=== PATIENT | female | born 2000 | race Caucasian/White ===

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

== ENCOUNTER → 2019-05-28 | Outpatient (CLI) | payer OTHER ==
--- NOTE | 2019-05-28 15:28 | Diagnostic Imaging Report ---
INDICATION: Bronchitis and right-sided rib pain. Time of exam 3:05 p.m. TECHNIQUE: AP view of the chest as well as multiple views of the bilateral ribs were obtained. FINDINGS: Heart size is normal. The lungs are clear. The pulmonary vascularity is normal. No infiltrate, effusion or pneumothorax is seen. No displaced rib fracture is seen. No parenchymal contusion is seen. IMPRESSION: Unremarkable chest and bilateral ribs. Dictated by: Dictated on workstation # [id number]
== END ==
LOC: RAD 14:47
PROVIDERS: ATTEND Nurse Practitioner Family
DX: J40 Bronchitis, not specified as acute or chronic (principal); R07.81 Pleurodynia
CPT/HCPCS: 71110

== ENCOUNTER → 2020-03-18 | Outpatient (CLI) | payer OTHER ==
--- NOTE | 2020-03-18 14:27 | Diagnostic Imaging Report ---
PROCEDURE: US Non-ob pelvis comp/trans. INDICATION: Abnormal uterine bleeding. TECHNIQUE: Multiple real time wong scale sonographic images were obtained of the pelvis transabdominally and endovaginally. CORRELATION STUDY: 07/05/2017 FINDINGS: UTERUS: 6.9 x 3.7 x 4.7 cm. Suggested potential sub-septate configuration of the uterus. ENDOMETRIUM: 2 mm. The endometrium appearing unremarkable. RIGHT OVARY: 3.5 x 2.4 x 2.4 cm The right ovary has an unremarkable appearance. No concerning mass. Blood flow is present. LEFT OVARY: 2.9 x 2.2 x 1.8 cm The left ovary has an unremarkable appearance. No concerning mass. Blood flow is present. No significant free pelvic fluid. IMPRESSION: 1. Unremarkable appearing pelvic ultrasound examination. Dictated by: Dictated on workstation # [id number]
== END ==
LOC: RAD 12:11
PROVIDERS: ATTEND Obstetrics & Gynecology
DX: N93.8 Other specified abnormal uterine and vaginal bleeding (principal)
CPT/HCPCS: 76830; 76856

== ENCOUNTER 2021-07-20 05:39 | Outpatient (CLI) | payer OTHER ==
[~2021-07-20] VITALS: Ht 170.2 cm; Wt 81.8 kg
== END 2021-07-20 16:53 | disposition home or self-care (01) ==
LOC: PREOP 05:39
PROVIDERS: ATTEND Obstetrics & Gynecology
DX: Z01.818 Encounter for other preprocedural examination (principal)

== ENCOUNTER 2021-07-27 07:27 | Day surgery (SDC) | payer OTHER ==
[2021-07-27] VITALS (10 sets, daily range): BP systolic 72–145; BP diastolic 50–88
[~2021-07-27] VITALS: Ht 170 cm; Wt 81.8 kg
[2021-07-27] MEDS ORDERED: BUPIVACAINE 0.25% 30 ML (SENSORCAINE) VIAL ONE (07:49)
[2021-07-27 08:04] LABS: BASOPHILS # (AUTO) 0.1 10^3/uL (0.0-0.1); BASOPHILS % (AUTO) 1 % (0-10); EOSINOPHILS # (AUTO) 0.7 10^3/uL (0.0-0.3); EOSINOPHILS % (AUTO) 12 % (0-10); HEMATOCRIT 41 % (35-52); HEMOGLOBIN 14.1 g/dL (11.5-16.0); LYMPHOCYTES # (AUTO) 2.4 10^3/uL (1.0-4.0); LYMPHOCYTES % (AUTO) 38 % (12-44); MEAN CORPUSCULAR HEMOGLOBIN 30 pg (25-34); MEAN CORPUSCULAR HGB CONC 35 g/dL (32-36); MEAN CORPUSCULAR VOLUME 88 fL (80-99); MEAN PLATELET VOLUME 11.3 fL (9.0-12.2); MONOCYTES # (AUTO) 0.4 10^3/uL (0.0-1.0); MONOCYTES % (AUTO) 6 % (0-12); NEUTROPHILS # (AUTO) 2.6 10^3/uL (1.8-7.8); NEUTROPHILS % (AUTO) 42 % (42-75); PLATELET COUNT 229 10^3/uL (130-400); WHITE BLOOD COUNT 6.2 10^3/uL (4.3-11.0)
[2021-07-27] MEDS: LACTATED RINGERS 1,000 ML IV PRN ×2 (08:31→09:20)
[2021-07-27] MEDS ORDERED: ROCURONIUM 10 MG/ML 5 ML SYRINGE IV ONE (08:44)
[2021-07-27] MEDS ORDERED: ONDANSETRON 4 MG/2 ML (SDV) Z0FRAN ONE (08:44)
[2021-07-27] MEDS ORDERED: MIDAZOLAM 2 MG/2 ML (VERSED) VIAL ONE (08:44)
[2021-07-27] MEDS ORDERED: LIDOCAINE PF 2% 5 ML (XYLOCAINE) VIAL ONE (08:44)
[2021-07-27] MEDS ORDERED: fentaNYL INJ 100 MCG/2 ML AMP ONE (08:44)
[2021-07-27] MEDS ORDERED: SEVOFLURANE (ULTANE) 15 ML INHAL SOLN ONE (08:44)
[2021-07-27] MEDS ORDERED: proPOfol 200 MG/20 ML (DIPRIVAN) VIAL IV ONE (08:44)
--- NOTE | 2021-07-27 08:50 | Progress Note-Pre Operative ---
Pre-Operative Progress Note H&P Reviewed The H&P was reviewed, patient examined and no changes noted. Date Seen by Provider: Jul 27, 2021 Time Seen by Provider: 08:50 Date H&P Reviewed: Jul 27, 2021 Time H&P Reviewed: 08:50 Pre-Operative Diagnosis: 8 cm ovarian cyst ZARA CABRERA DO Jul 27, 2021 08:50
--- NOTE | 2021-07-27 08:52 | Discharge Inst-Women's Service ---
Discharge Inst-Women's Serv Depart Medication/Instructions New, Converted or Re-Newed RX: Transmitted to Pharmacy Problems Reviewed?: Yes Consults/Follow Up Additional Follow Up: Yes Orders/Referrals in 7-10 days Activity Activity: Activity as Tolerated Driving Instructions: No Driving for 1 Week NO SMOKING: NO SMOKING Nothing Inside Vagina: No Douching, No [place], No Tampons Diet Discharge Diet: No Restrictions Symptoms to Report to : Bleeding Excessive, Pain Increased, Fever Over 101 Degrees F, Vaginal Bleeding Increase, Questions/Concerns For Any Problems or Questions: Contact Your Physician Skin/Wound Care Infection Signs and Symptoms: Increased Redness, Foul Odor of Wound, Increased Drainage, Skin Itchy or Has a Rash, Increased Swelling, Temperature Above 101 F Operative Area Clean and Dry: Keep Incision Clean/Dry Stitches/[place]/Dermabond: Dermabond, Care of Stitches Bathing Instructions: ZARA Carbajal DO Jul 27, 2021 08:52
[2021-07-27] MEDS ORDERED: ACHD5005 PO (08:53)
[2021-07-27] MEDS ORDERED: IBUP-1773 PO (08:53)
[2021-07-27] MEDS ORDERED: HYDROcodone/APAP 5 MG/325 MG (LORTAB) TAB PO PRN (09:00)
[2021-07-27] MEDS ORDERED: KETOROLAC 30 MG/ML VIAL IVP ONE (09:00)
[2021-07-27] MEDS ORDERED: ONDANSETRON 4 MG/2 ML (SDV) Z0FRAN IVP PRN ×2 (09:00→10:15)
[2021-07-27] MEDS ORDERED: D5 LR IV SOLUTION 1,000 ML IV SCH (09:00)
--- NOTE | 2021-07-27 10:06 | Anesthesia-General Post-Op ---
General Patient Condition Mental Status/LOC: Same as Preop Cardiovascular: Satisfactory Nausea/Vomiting: Absent Respiratory: Satisfactory Pain: Controlled Complications: Absent Post Op Complications Complications None Follow Up Care/Instructions Patient Instructions None needed. Anesthesia/Patient Condition Patient Condition Patient is doing well, no complaints, stable vital signs, no apparent adverse anesthesia problems. No complications reported per nursing. BRAD LEONARD CRNA Jul 27, 2021 10:06
[2021-07-27] MEDS ORDERED: HYDROmorphone 2 MG/ML VIAL (DILAUDID) IV ONE (10:15)
[2021-07-27] MEDS ORDERED: MEPERIDINE (DEMEROL) INJ 50 MG/ML IVP ONE (10:15)
[2021-07-27] MEDS ORDERED: PROMETHAZINE INJ 25 MG/ML (PHENERGAN) AMP IVP ONE (10:15)
[2021-07-27] MEDS ORDERED: morphine INJ 10 MG/ML 1ML (SYR OR VIAL) IVP ONE (10:15)
[2021-07-27] MEDS ORDERED: MEPERIDINE (DEMEROL) INJ 50 MG/ML ONE (10:17)
[2021-07-27] MEDS ORDERED: KETOROLAC 30 MG/ML VIAL ONE (10:28)
[2021-07-27] MEDS ORDERED: HYDROcodone/APAP 5 MG/325 MG (LORTAB) TAB ONE (11:04)
[2021-07-27] MEDS ORDERED: HYDROcodone/APAP 5 MG/325 MG (LORTAB) TAB PO ONE (11:15)
--- NOTE | 2021-07-27 17:44 | OPERATIVE REPORT ---
DATE OF SERVICE: PREOPERATIVE DIAGNOSIS: A 21-year-old female with 8 cm ovarian mass. POSTOPERATIVE DIAGNOSIS: A 21-year-old female with 8 cm ovarian mass. PROCEDURE: Laparoscopic right ovarian cystectomy and lysis of adhesions. SURGEON: Florentin Garcia DO FLIGHT INSPECTOR: Joy Hensley DNP, was necessary for manipulation and retraction throughout the procedure. ANESTHESIA: General endotracheal. ESTIMATED BLOOD LOSS: Minimal. URINE OUTPUT: 50 mL clear at the end of the procedure. FLUIDS: 1200 mL lactated Ringer's solution. FINDINGS: An enlarged right ovary consistent with ultrasound imaging. Grossly normal appearing uterus, grossly normal appearing left ovary, filmy adhesions of the uterus to the descending sigmoid, filmy adhesions of the right fallopian tube and right ovary to the omentum. SPECIMEN SENT: Right ovarian cyst wall. INDICATIONS FOR PROCEDURE: This 21-year-old female is a patient who had sought care in my office for progressively worsening pain in the pelvis. The patient was found to have 8 cm what was suspected to be an ovarian cyst on ultrasound examination. She was sent to my my office for further evaluation. Upon evaluation in the office, I discussed with the patient conservative management versus removal, the patient opted to proceed with removal due to her discomfort and it was getting worse. Risks of the procedure were discussed with the patient in detail and after all of her questions were answered, consent was obtained in the preoperative area, the patient was taken to the operating room. OPERATIVE REPORT IN DETAIL: Once in the operating room, anesthesia was found to be adequate, placed in dorsal lithotomy position, prepped and draped in normal sterile fashion where a timeout was performed. A Dupree catheter was placed using sterile technique. A weighted speculum inserted to the patient's vagina. Right angle retractor was used to visualize the cervix. There is an IUD string noted at that point. I do not place a uterine manipulator due to the IUD being in place. Therefore, I placed a sponge stick in the vagina for manipulation of the uterus. I removed all the other instruments from the patient's vagina, performed a change of gloves obtained my attention to the abdomen, where subcostally at the midclavicular line, I introduced the Veress needle through the skin until intraperitoneal placement was confirmed using saline drop test. An opening pressure of 2 mmHg was noted, proceeded to max pressure of 15 mmHg using CO2 gas, at which point, I made an infraumbilical 5 mm incision with a knife and directed a 5 mm blunt laparoscopic trocar through the incision until intraperitoneal placement was confirmed using the laparoscope. Upon entry into the peritoneal cavity. There was no evidence of damage from entry site. A brief scan of the upper abdominal anatomy appears to be grossly normal. The Veress needle was removed. There was no active bleeding noted from any of my puncture site. I then had the patient placed in steep Trendelenburg and made visualize all my pelvic anatomy as defined in my findings above. The right ovary is fixed and underneath of the right fallopian tube and stuck to the right pelvic sidewall. The filmy adhesions had to be taken down in order to liberate the ovary from the right pelvic sidewall and mobilized out of the pelvis. I placed a suprapubic trocar and a left lower quadrant trocar. These were both 5 mm trocars were placed under direct visualization and laparoscope. Once both these trocars were in place, I am able to take down the filmy adhesion using a LigaSure device using both the bipolar cautery and cut functions. Once the filmy adhesions were taken down, I am able to elevate and mobilize the right ovary out of the right pelvis, at which point I puncture this right ovarian cyst using a right angle cautery and make an incision down the cyst wall, dark chocolate colored fluid spills out and suctioned up using a laparoscopic suction and irrigation. I then used a LigaSure device to take a large segment of the ovarian cyst wall and removed this in portions through the trocar sites, after which there was no active bleeding noted from the cyst wall or its resection plain. The ovary was copiously irrigated and found to be hemostatic. After all of this and irrigation was performed, there was no active bleeding noted from any of my dissection planes. I then removed the lower trocars under direct visualization of the laparoscope. The infraumbilical trocars left in place to release insufflation and introduced 10 mL of 0.25% Marcaine into peritoneal cavity for postoperative pain management. I then removed this trocar as well. The skin was reapproximated using Dermabond in all four puncture and incision sites. Dupree catheter was removed. The patient tolerated the procedure well and taken to recovery area in stable condition. Lap and sponge counts were correct at the end of procedure. Instrument counts correct as well. Job ID: [id number] DocumentID: [id number] Dictated Date: 07/27/2021 12:02:03 Commercial Reporter Date: 07/27/2021 17:43:51 Dictated By: DO LINDSAY HERNANDEZ
== END 2021-07-27 11:45 | disposition home or self-care (01) ==
LOC: SDC 07:27
PROVIDERS: ATTEND Obstetrics & Gynecology
DX: N83.201 Unspecified ovarian cyst, right side (principal); N83.8 Other noninflammatory disorders of ovary, fallopian tube and broad ligament; Z79.899 Other long term (current) drug therapy; Z82.49 Family history of ischemic heart disease and other diseases of the circulatory system
CPT/HCPCS: 36415; 84703; 85025; 86850; 86900; 86901; 87081; 88305